=== PATIENT | female | born 1945 | race Caucasian/White ===

== ENCOUNTER → 2016-07-04 10:51 | Outpatient (CLI) | payer MEDICARE, OTHER | END | disposition home or self-care (01) | LOC: D.MRI 10:51 | DX: R51 Headache (principal) ==

== ENCOUNTER → 2016-11-09 08:34 | Outpatient (CLI) | payer MEDICARE, OTHER | END | disposition home or self-care (01) | LOC: D.MAMMO 08:34 | DX: Z12.31 Encounter for screening mammogram for malignant neoplasm of breast (principal) ==

== ENCOUNTER → 2017-11-14 20:52 | Outpatient (CLI) | payer MEDICARE, OTHER | END | disposition home or self-care (01) | LOC: D.MAMMO 15:30 | DX: Z12.31 Encounter for screening mammogram for malignant neoplasm of breast (principal) ==

== ENCOUNTER 2018-11-30 09:00 | Outpatient (CLI) | payer MEDICARE, BC | END 2018-11-30 10:00 | disposition home or self-care (01) | LOC: D.MAMMO 09:00 | PROVIDERS: ATTEND Family Medicine | DX: Z12.31 Encounter for screening mammogram for malignant neoplasm of breast (principal) ==

== ENCOUNTER 2019-09-17 09:09 | Emergency (ER) | payer MEDICARE, BC ==
[~2019-09-17] VITALS: Ht 162.6 cm; Wt 63.6 kg
[2019-09-17 09:16] VITALS: Ht 162.6 cm; Wt 63.6 kg
[2019-09-17] MEDS ORDERED: OMEPRAZOLE20 M1 PO (09:17)
[2019-09-17] MEDS ORDERED: NORVASC5 MG PO (09:17)
[2019-09-17] MEDS ORDERED: IMITREX100 MG PO (09:18)
[2019-09-17] MEDS ORDERED: MACROBID100 MG PO (09:18)
[2019-09-17] MEDS ORDERED: KEFLEX500 MG PO (10:57)
[2019-09-17] MEDS ORDERED: TYLENOL W/CODEI1 TAB PO (10:57)
[2019-09-17 11:19] VITALS: BP 136/75
== END 2019-09-17 11:21 | disposition home or self-care (01) ==
LOC: D.ER 09:09
DX: S61.210A Laceration without foreign body of right index finger without damage to nail, initial encounter (principal); W26.8XXA Contact with other sharp object(s), not elsewhere classified, initial encounter; Y93.9 Activity, unspecified; Y92.9 Unspecified place or not applicable; I10 Essential (primary) hypertension; K21.9 Gastro-esophageal reflux disease without esophagitis; S60.10XA Contusion of unspecified finger with damage to nail, initial encounter